=== PATIENT | female | born 1990 | race Two or more races ===

== ENCOUNTER 2020-11-21 12:45 | Inpatient (IN) | payer OTHER ==
[~2020-11-21] VITALS: Ht 149.9 cm; Wt 62.1 kg
[2020-11-29] MEDS ORDERED: PRENATAL CAPLE1 EAC1 PO (04:13)
[2020-11-29] MEDS ORDERED: SYNTHROID125 MCG PO (04:13)
== END 2020-12-01 13:50 | disposition home or self-care (01) | DRG 807 ==
LOC: LDR 11-29 03:28 → OB/GYN 11-29 03:28
PROVIDERS: ADMIT Obstetrics & Gynecology; ATTEND Obstetrics & Gynecology
PROC: 10E0XZZ Delivery of Products of Conception, External Approach (ICD-10-PCS; principal; 2020-11-29)
PROC: 4A1HXFZ Monitoring of Products of Conception, Cardiac Rhythm, External Approach (ICD-10-PCS; 2020-11-29)
DX: O99.284 Endocrine, nutritional and metabolic diseases complicating childbirth (principal); Z37.0 Single live birth; E03.9 Hypothyroidism, unspecified; O70.1 Second degree perineal laceration during delivery; Z3A.39 39 weeks gestation of pregnancy; Z20.822 Contact with and (suspected) exposure to COVID-19

== ENCOUNTER 2020-11-28 13:45 | Outpatient (CLI) | payer OTHER ==
[2020-11-29] MEDS ORDERED: PRENATAL CAPLE1 EAC1 PO (04:13)
[2020-11-29] MEDS ORDERED: SYNTHROID125 MCG PO (04:13)
== END 2020-11-28 15:51 | disposition home or self-care (01) ==
LOC: NST 13:45
PROVIDERS: ATTEND Obstetrics & Gynecology
DX: Z34.83 Encounter for supervision of other normal pregnancy, third trimester (principal)

== ENCOUNTER 2021-06-05 15:39 | Emergency (ER) | payer OTHER ==
[~2021-06-05] VITALS: Ht 149.9 cm; Wt 53.1 kg
[~2021-06-05 15:39] MED LIST: PRENATAL CAPLE1 EAC1 PO; SYNTHROID125 MCG PO
== END 2021-06-05 22:04 | disposition home or self-care (01) ==
LOC: ER 15:39
DX: R41.82 Altered mental status, unspecified (principal)

== ENCOUNTER 2023-11-11 19:32 | Outpatient (CLI) | payer OTHER | END 2023-11-11 20:47 | disposition home or self-care (01) | LOC: NST 19:32 | PROVIDERS: ATTEND Obstetrics & Gynecology Gynecology | DX: Z34.83 Encounter for supervision of other normal pregnancy, third trimester (principal) ==

== ENCOUNTER 2023-12-26 13:36 | Inpatient (IN) | payer OTHER ==
[2023-12-26] VITALS (7 sets, daily range): BP systolic 106–126; BP diastolic 61–91
[~2023-12-26] VITALS: Ht 149.9 cm; Wt 63.5 kg
[2023-12-26] MEDS ORDERED: OXYTOCIN 500 ML IV ONE (14:16)
[2023-12-26 14:58] LABS: HEMOGLOBIN 11.3 g/dL (12.0-15.00); MEAN CELL VOLUME 93.3 fL (80.00-100.00); MEAN CORPUSCULAR HEMOGLOBIN 32.9 pg (27.00-32.0); MEAN CORPUSCULAR HGB CONC 35.3 g/dl (32.0-36.0); PLATELET COUNT 260 K/uL (150-450); RED BLOOD COUNT 3.43 M/uL (4.00-6.00); RED CELL DISTRIBUTION WIDTH 14.5 % (11.5-14.5)
[2023-12-26 15:26] LABS: ALBUMIN 3.3 gm/dL (3.4-5.0); BILIRUBIN TOTAL 0.26 mg/dL (0.3-1.2); CALCIUM 9.2 mg/dL (8.5-10.1); CREATININE SERUM 0.63 mg/dL (0.55-1.02); GFR 108.83; GLOBULINA 4.2 G/DL (2.4-3.5); POTASSIUM 3.62 mEq/L (3.5-5.1); TOTAL PROTEIN 7.5 gm/dL (6.4-8.2)
[2023-12-26 15:29] LABS: INR < 0.93; PARTIAL THROMBOPLASTIN TIME 28.1 SECONDS (22.0-34.0)
[2023-12-26] MEDS ORDERED: MORPHINE SULFATE 4 MG/ML CARTRIDGE IV ONE (17:15)
[2023-12-26] MEDS ORDERED: OXYTOCIN 1,000 ML IV SCH (19:30)
[2023-12-26] MEDS ORDERED: IBUprofen 400 MG TABLET PO PRN (19:30)
[2023-12-26] MEDS ORDERED: OxyCODONE HCL/APAP UD (PERCOCET) PO PRN (19:30)
[2023-12-26] MEDS ORDERED: LIDOCAINE HCL 1% 10ML VIAL IJ ONE (20:15)
[2023-12-26] MEDS ORDERED: ERYTHROMYCIN BASE OPHT 1GM EACH TUBE OP ONE (20:15)
[2023-12-26] MEDS ORDERED: CHLORHEXIDINE GLUCONATE 120 ML BOTTLE TOP ONE (20:15)
[2023-12-27] VITALS: BP 101/63
[2023-12-27 08:34] VITALS: BP 101/55
[2023-12-27 16:01] VITALS: BP 103/65
[2023-12-28 00:37] VITALS: BP 109/64
[2023-12-28 08:08] VITALS: BP 100/60
== END 2023-12-28 12:45 | disposition home or self-care (01) | DRG 807 ==
LOC: OB/GYN 13:36 → LDR 13:36 → OB/GYN 19:44
PROVIDERS: ADMIT Obstetrics & Gynecology; ATTEND Obstetrics & Gynecology
PROC: 10E0XZZ Delivery of Products of Conception, External Approach (ICD-10-PCS; principal; 2023-12-26)
PROC: 0UQG7ZZ Repair Vagina, Via Natural or Artificial Opening (ICD-10-PCS; 2023-12-26)
PROC: 4A1HXCZ Monitoring of Products of Conception, Cardiac Rate, External Approach (ICD-10-PCS; 2023-12-26)
DX: O71.4 Obstetric high vaginal laceration alone (principal); O69.89X0 Labor and delivery complicated by other cord complications, not applicable or unspecified; Z37.0 Single live birth; Z3A.37 37 weeks gestation of pregnancy; Z20.822 Contact with and (suspected) exposure to COVID-19